=== PATIENT | male | born 2000 | race Caucasian/White ===

== ENCOUNTER 2021-12-05 02:59 | Emergency (ER) | payer OTHER, SELFPAY ==
--- NOTE | 2021-12-05 03:00 | PC.NURSE ---
ERP administered amp of bicarb by spraying topically on pts hands. Pt reports burning improved but returned.
[2021-12-05 03:01] VITALS: BP 143/82; PULSE 72; RESP 20; TEMP 36.3; O2SAT 99
--- NOTE | 2021-12-05 03:16 | ED.GENADULT ---
HPI - General Adult General Chief complaint: Unspecified Stated complaint: Burning to hands after ghostpepper contact. Time Seen by Provider: 12/05/21 03:04 History of Present Illness HPI narrative: 21-year-old male presenting to the emergency department for evaluation of burning to his hands after touching ghost peppers. Patient states that approximately 10 PM he got ghost peppers on his hand. Patient states he did soak his hands in yogurt, wash his hands multiple times with dish soap and also soaked his hands and milk. Patient states he has a burning sensation to both hands. Patient denies any other pain or injury. Related Data Home Medications Medication Instructions Recorded Confirmed No Home Medications 12/05/21 12/05/21 Allergies Allergy/AdvReac Type Severity Reaction Status Date / Time No Known Allergies Allergy Verified 12/05/21 03:00 Review of Systems Review of Systems: CONSTITUTIONAL: Denies fever, chills, or sweats. EYES: Denies visual changes, redness, or discharge. ENT: Denies rhinorrhea, congestion, sore throat, or otalgia. CARDIOVASCULAR: Denies chest pain, palpitations, or edema. RESPIRATORY: Denies cough or dyspnea. GASTROINTESTINAL: Denies abdominal pain, nausea, vomiting, or diarrhea. GENITOURINARY: Denies dysuria or hematuria. SKIN: Burning sensation to hands MUSCULOSKELETAL: Denies back pain, joint pain, or myalgia. NEUROLOGIC: Denies headache, numbness, or weakness. PSYCHIATRIC: Denies anxiety or depression. Exam Narrative: APPEARANCE: Well appearing, no pain, no distress, well-nourished. HEAD: normocephalic, atraumatic. EYES: PERRLA/EOMI, conjunctivae clear. NOSE: Normal no drainage NEURO: Alert. Cranial nerves II through XII intact. Grossly intact SKIN: Normal-appearing skin Course Course Emergency Course: Washed the patient's hands with isopropyl alcohol and dish soap with no significant improvement. Kitchen did not have any baking soda available. Washed the patient's hands using sodium bicarbonate with mild improvement. The 24-hour [facility] and [employer] reported they had baking soda and patient was referred to there. Patient was comfortable with the plan for discharge. All questions and concerns were addressed. Vital Signs Vital signs: Vital Signs Temperature 97.3 F L 12/05/21 03:01 Pulse Rate 72 09/11/22 03:01 Respiratory Rate 20 12/05/21 03:01 Blood Pressure 143/82 H 12/05/21 03:01 Pulse Oximetry 99 12/05/21 03:01 Oxygen Delivery Room Air 12/05/21 03:01 Temperature 97.3 F L 12/05/21 03:01 Pulse Rate 72 12/05/21 03:01 Respiratory Rate 20 12/05/21 03:01 Blood Pressure 143/82 H 12/05/21 03:01 Pulse Oximetry 99 12/05/21 03:01 Oxygen Delivery Room Air 12/05/21 03:01 Medical Decision Making Vital Signs Vital Signs: Vital Signs Temperature 97.3 F L 12/05/21 03:01 Pulse Rate 72 12/05/21 03:01 Respiratory Rate 20 12/05/21 03:01 Blood Pressure 143/82 H 12/05/21 03:01 Pulse Oximetry 99 12/05/21 03:01 Oxygen Delivery Room Air 12/05/21 03:01 Temperature 97.3 F L 12/05/21 03:01 Pulse Rate 72 12/05/21 03:01 Respiratory Rate 20 12/05/21 03:01 Blood Pressure 143/82 H 12/05/21 03:01 Pulse Oximetry 99 12/05/21 03:01 Oxygen Delivery Room Air 12/05/21 03:01 Discharge Plan Discharge Clinical Impression: Chemical exposure Patient Disposition: Home, Self-Care Condition: Stable Instructions: Antibiotic Form Additional Instructions: Make a paste of baking soda to wash your hands. The 24-hour [facility] in [employer] reported they have baking soda. Have close follow-up with your primary care physician as needed Prescriptions: No Action No Home Medications Follow-up/Referrals: PHYSICIAN,MEDICAL BILLING AND CODING SPECIALIST [Primary Care Provider] -
== END 2021-12-05 03:58 | disposition home or self-care (01) ==
PROVIDERS: Emergency Provider Emergency Medicine
DX: T75.89XA Other specified effects of external causes, initial encounter (principal); R20.8 Other disturbances of skin sensation
CPT/HCPCS: 99281